=== PATIENT | male | born 1955 | race Caucasian/White ===

== ENCOUNTER 2021-03-04 14:30 | Emergency (ER) | payer BC, SELFPAY ==
[2021-03-04 14:31] VITALS: BP 169/89; PULSE 72; RESP 16; TEMP 36.6; O2SAT 97; BMI 31.8
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
[2021-03-04 16:50] VITALS: BP 128/77; PULSE 62; RESP 15; O2SAT 97
== END 2021-03-04 17:16 | disposition home or self-care (01) ==
PROVIDERS: Emergency Provider Emergency Medicine
DX: S16.1XXA Strain of muscle, fascia and tendon at neck level, initial encounter (principal); V53.9XXA Unspecified occupant of pick-up truck or van injured in collision with car, pick-up truck or van in traffic accident, initial encounter
CPT/HCPCS: 70450; 72125; 99284